=== PATIENT | female | born 1955 | race Caucasian/White ===

== ENCOUNTER 2016-09-10 21:32 | Observation (INO) | payer MEDICARE, OTHER ==
[~2016-09-10] VITALS: Ht 162.6 cm; Wt 86.5 kg
--- NOTE | ~2016-09-10 | HEMODYNAMI ---
PATIENT:HAZEL LIMA MEDICAL RECORD: [id number] : 51 [id number] ADMISSION DATE: 09/11/16 Generatedon:09/12/201614:05 Patient name: HAZEL LIMA Patient #: [id number] SSN: D OB: 1955 Date of study: 09/12/2016 Page: Of Hemodynamic Procedure Report Patient Data Patient Demographics Procedure consent was obtained First Name: HAZEL Gender: Female Last Name: JANIE : 1955 [facility] Initial: J Age: 61 year(s) Patient #: [id number] Race: Additional ID: [id number] Contact details [address]: [address] [place] [address] cutoff State: [place] City: [place] Zip code: [address] Past Medical History Allergies Allergen Reaction Date Comments Reported Other allergy 04/28/2015 Morphine, Shellfish Iodine 09/12/2016 Morphine 09/12/2016 Admission Admission Data Admission Date: 09/11/2016 Admission Time: 1:29 Room #: D.2119 Lab Results Lab Result Date: 09/12/2016 Lab Result Time: 0:00 Biochemistry Name Units Result Min Max BUN mg/dl 14 --(--*-)-- 7 18 Creatinine mg/dl 0.9 --(-*--)-- 0.6 1.3 CBC Name Units Result Min Max Hemoglobin g/dl 13.3 -*(----)-- 13.5 17.5 Procedure Procedure Types Cath Procedure Diagnostic Procedure LHC LHC w/Coronaries PCI Procedure Coronary Stent Initial Miscellaneous Procedures Moderate Sedation up to 30 minutes Procedure Description Procedure Date Procedure Date: 09/12/2016 Procedure Start Time: 13:36 Procedure End Time: 14:00 Procedure Staff Name Function Kaiser Jaimes MD Performing Physician Diana Leon RN Nurse Anjel Peters RT Monitor Chong Perales RN Lambskin Trimmer Donald Mcclain RT Scrub Procedure Data Cath Procedure Fluoroscopy Diagnostic fluoroscopy Total fluoroscopy Time: 5.5 time: 5.5 min min Diagnostic fluoroscopy Total fluoroscopy dose: dose: 1148 mGy 1148 mGy Contrast Material Contrast Material Type Amount (ml) Isovue 370 0 Isovue 300 149 Entry Location Entry Primary Successful Side Size Upsize Upsize Entry Closure Succes sful Closure Location (Fr) 1 (Fr) 2 (Fr) Remarks Device Remarks Femoral Right 5 Fr 6 Fr Exoseal artery Short Diagnostic catheters Device Type Used For End Catheter Placement Cordis 5Fr JL 4.0 Left Coronary Catheter (MP) Angiography Cordis 5Fr 3DRC Catheter Right Coronary (MP) Angiography Diagnostic Infinity 5Fr Right Coronary AL 1 catheter Angiography Cordis 5Fr Pigtail LV Angiography Catheter (MP) Procedure Complications No complications Procedure Medications Medication Administration Route Dosage Oxygen NC 2 l/min Heparin Flush Bag added to field 2 bags (1000units/500ml NS) Lidocaine 2% added to field 20 Versed I.V. 1 mg Fentanyl I.V. 50 mcg Versed I.V. 1 mg Fentanyl I.V. 50 mcg Versed I.V. 1 mg Fentanyl I.V. 50 mcg Heparin Bolus I.V. 8500 units Nitroglycerin IC/IA I.C. 100 mcg Versed I.V. 1 mg Fentanyl I.V. 50 mcg Plavix P.O. 600 mg Hemodynamics Rest HGB: 13.3 (g/dl) Heart Rate: 88 (bpm) Pressure Samples Time Site Value (mmHg) Purpose Heart Use Rate(bpm) 13:44 LV 135/0,19 EDP 84 13:44 AO 116/64(86) Pullback 85 13:44 LV 133/0,21 Pullback 85 Gradients Valve Time Site 1 Site 2 Mean SEP/DFP Peak To Heart Use (mmHg) (sec/min) Peak Rate (mmHg) (bpm) Aortic 13:44 LV AO 11 26 17 85 133/0,21 116/64(86) Calculations Valve P-P Mean Valve Index Valve Source Name Gradient Area Flow (cm2) Aortic 17 11 17 11 Snapshots Pre Cath Intra NCS Post Cath Vital Signs Time Heart Resp SPO2 NIBP (mmHg) Rhythm Pain Sedation Rate (ipm) (%) Status Level (bpm) 13:17:23 87 16 97 167/82(116) NSR 0 (11) 10(A) , No pain 13:21:53 88 21 97 160/82(144) NSR 0 (11) 10(A) , No pain 13:26:13 90 15 98 140/80(114) NSR 0 (11) 10(A) , No pain 13:31:10 86 19 96 134/72(104) NSR 0 (11) 10(A) , No pain 13:35:27 83 23 96 134/69(97) NSR 0 (11) 10(A) , No pain 13:39:43 82 18 96 123/71(102) NSR 0 (11) 10(A) , No pain 13:44:03 86 16 96 128/60(99) NSR 0 (11) 10(A) , No pain 13:48:19 86 16 99 129/68(96) NSR 0 (11) 10(A) , No pain 13:52:31 89 16 98 128/71(100) NSR 0 (11) 10(A) , No pain 13:56:42 97 16 97 125/73(94) NSR 0 (11) 10(A) , No pain 13:59:47 91 16 97 135/71(99) NSR 0 (11) 10(A) , No pain Medications Time Medication Route Dose Verified Delivered Reason Notes Effectiveness by by 13:24:15 Oxygen NC 2 Kaiser Diana Per physician l/min Shane Leon RN 13:24:22 Heparin Flush added 2 Kaiser Kaiser used for Bag to bags Shane Jaimes MD procedure (1000units/500ml field NS) 13:24:31 Lidocaine 2% added 20ml Kaiser Kaiser used for to vial Shane Jaimes MD procedure field 13:30:05 Versed I.V. 1 mg Kaiser Diana for sedation Shane Leon RN 13:30:11 Fentanyl I.V. 50 Kaiser Diana for sedation mcg Shane Leon RN 13:32:29 Versed I.V. 1 mg Kaiser Diana for sedation Shane Leon RN 13:32:33 Fentanyl I.V. 50 Kaiser Diana for sedation mcg Shane Leon RN 13:34:38 Versed I.V. 1 mg Kaiser Diana for sedation Shane Leon RN 13:34:47 Fentanyl I.V. 50 Kaiser Diana for sedation mcg Shane Leon RN 13:37:07 Versed I.V. 1 mg Kaiser Diana for sedation Shane Leon RN 13:37:16 Fentanyl I.V. 50 Kaiser Diana for sedation mcg Shane Leon RN 13:49:50 Heparin Bolus I.V. 8500 Kaiser Diana for dose units Shane Leon RN anticoagulation verified with dr jaimes 13:55:38 Nitroglycerin I.C. 100 Kaiser Kaiser for IC/IA mcg Shane wilkins 13:58:21 Plavix P.O. 600 Kaiser Diana for mg Shane Leon RN antiplatelet therapy Procedure Log Time Note 12:50:46 Chong Perales RN sent for patient. Start room use. 12:56:51 Plan of Care:Hemodynamics will remain stable., Cardiac rhythm will remain stable., Comfort level will be maintained., Respiratory function will remain adequate., Patient/ family verbilizes understanding of procedure., Procedure tolerated without complication., Recovers from procedure without complications.. 12:56:52 Time tracking: Regular hours 13:09:15 Patient received from PCU to CCL 2 Alert and oriented. Tansferred to table in Supine position. 13:09:16 Warm blankets applied, and addy hugger turned on for patient comfort. 13:09:17 Correct patient and procedure confirmed by team. 13:09:18 Signed procedure consent form obtained from patient. 13:09:19 ECG and BP/O2 sat monitors applied to patient. 13:16:09 Vital chart was started 13:21:44 Baseline sample Acquired. 13:21:50 Rhythm: sinus tachycardia 13:21:52 Full Disclosure recording started 13:22:01 H&P Date Dictated: 09/11/2016 Within 30 days and on chart.. 13:22:02 Pre-procedure instructions explained to patient. 13:22:02 Pre-op teaching completed and patient verbalized understanding. 13:22:04 Family in patients room. 13:22:05 Patient NPO since Midnight. 13:22:11 Patient allergic to Iodine 13:22:16 Patient allergic to Morphine 13:22:18 Is the patient allergic to Iodine/contrast media? Yes. 13:22:20 Was the patient premedicated? Yes 13:24:15 Oxygen 2 l/min NC was administered by Diana Leon RN; Per physician; 13:24:22 Heparin Flush Bag (1000units/500ml NS) 2 bags added to field was administered by Kaiser Jaimes MD; used for procedure; 13:24:31 Lidocaine 2% 20ml vial added to field was administered by Kaiser Jaimes MD; used for procedure; 13:26:58 Is patient on blood thinner?No 13:27:01 ACC The patient was administered the following blood thiners within the last 24 hours: ACCAspirin 13:27:03 Patient diabetic? No. 13:27:04 ----Pre-sedation anethsthesia assessment.---- 13:27:06 Previous problem with sedation/anesthesia? No ? 13:27:07 Snore? Yes 13:27:09 Sleep apnea? Yes 13:27:10 Deviated septum? No 13:27:11 Opens mouth fully? Yes 13:27:12 Sticks out tongue? Yes 13:27:21 Airway obstruction? Yes chronic bronchitits 13:27:25 Dentures? No ? 13:27:27 Pre procedure: right dorsailis pedis pulse 1+ Palpable, but thready & weak; easily obliterated 13:27:31 Patient pain scale 0/10 ?. 13:27:38 IV patent on arrival in left forearm with 0.9% NaCl at 10ml/hr. 13:29:20 Lab Result : BUN 14 mg/dl 13:29:20 Lab Result : Hemoglobin 13.3 g/dl 13:29:20 Lab Result : Creatinine 0.9 mg/dl 13::23 Lab results completed and on chart. 13:29:25 Right groin area was prepped with chlora-prep and draped in sterile fashion 13:: Alarms reviewed by R. N. 13:: Sharps counted by scrub and verified by R.N. :: --------ALL STOP TIME OUT------ :29 Final Timeout: patient, procedure, and site verified with staff and physician. All members of the team are in agreement. 13:29:31 Right groin site verified by team. 13::35 Physical assessment completed. ASA score P 2 - A patient with mild systemic disease as per Kaiser Jaimes MD. 13:29:38 Sedation plan: IV Moderate Sedation Versed, Fentanyl 13:30:02 Use device set Femoral Dx 13:30:03 Acist Syringe opened to sterile field. 13:30:03 Bag Decanter opened to sterile field. 13:30:03 Medline Cath Pack opened to sterile field. 13:30:04 Terumo 5Fr Chaplin Sheath opened to sterile field. 13:30:04 St Eriberto 260cm J .035 wire opened to sterile field. 13:30:05 Versed 1 mg I.V. was administered by Diana Leon RN; for sedation; 13:30:05 Acist Hand Control opened to sterile field. 13:30:06 Acist Manifold opened to sterile field. 13:30:06 Diagnostic Infinity 5Fr Multipack catheter opened to sterile field. 13:30:06 Tegaderm 4 x 4 opened to sterile field. 13:30:11 Fentanyl 50 mcg I.V. was administered by Diana Leon RN; for sedation; 13:32:29 Versed 1 mg I.V. was administered by Diana Leon RN; for sedation; 13:32:33 Fentanyl 50 mcg I.V. was administered by Diana Leon RN; for sedation; 13:34:34 Procedure started. 13:34:38 Versed 1 mg I.V. was administered by Diana Leon RN; for sedation; 13:34:47 Fentanyl 50 mcg I.V. was administered by Diana Leon RN; for sedation; 13:36:45 Zero performed for pressure channel P1 13:36:52 Local anesthetic to right femoral artery with Lidocaine 2% by Kaiser Jaimes MD.INITIAL ACCESS ONLY 13:37:00 A 5 Fr sheath was inserted into the Right Femoral artery 13:37:07 Versed 1 mg I.V. was administered by Diana Leon RN; for sedation; 13:37:15 A Cordis 5Fr JL 4.0 Catheter (BARBIE) was advanced over the wire and used for Left Coronary Angiography. 13:37:16 Fentanyl 50 mcg I.V. was administered by Diana Leon RN; for sedation; 13:37:21 LCA angiography performed. 13:38:51 Catheter removed. 13:38:59 A Cordis 5Fr 3DRC Catheter (MP) was advanced over the wire and used for Right Coronary Angiography. 13:40:48 Catheter exchanged over wire. 13:40:58 A Diagnostic Infinity 5Fr AL 1 catheter was advanced over the wire and used for Right Coronary Angiography. 13:42:09 RCA angiography performed. 13:42:10 Catheter removed. 13:43:23 A Cordis 5Fr Pigtail Catheter (MP) was advanced over the wire and used for LV Angiography. 13:43:36 LV angiography performed. 13:43:41 LV gram done using LA 13:43:45 Injector settings: Ml/sec: 10, Volume: 20, 13:44:18 LV hemodynamics recorded. 13:44:40 EF : 60 % 13:44:50 Catheter removed. 13:46:24 High Pressure Extension Tubing (Shane) opened to sterile field. 13:46:24 ForadianW Richmond 2 J-tip 300cm 0.014 guide wir opened to sterile field. 13:46:25 Mobile Cohesion BasixCompak Inflation Kit opened to sterile field. 13:46:25 Terumo 6Fr Chaplin Sheath opened to sterile field. 13:46:25 Cordis 6FR XBLAD 3.5 guide catheter opened to sterile field. 13:46:40 ACC PCI Site: [facility] has 99% stenosis. 13:46:42 ACC Pre-intervention MAYO Flow is 3. 13:46:50 Sheath upsized to a 6 Fr Short. 13:47:09 6 Fr XBLAD 3.5 guide catheter was inserted over the wire 13:47:15 BMW 2 wire advanced. 13:49:50 Heparin Bolus 8500 units I.V. was administered by Diana Leon RN; for anticoagulation; dose verified with dr jaimes 13:53:29 Inflation Number: 1 A Medtronic Integrity 3.0 X 18 stent was prepped and advanced across the Mid CX. The stent was deployed at 13 MARITZA for 0:10 (min:sec). 13:55:38 Nitroglycerin IC/IA 100 mcg I.C. was administered by Kaiser Jaimes MD; for vasodilation; 13:56:40 Stent catheter was removed intact over wire. 13:56:41 Wire removed. 13:56:41 Guide catheter removed. 13:58:11 Sheath removed intact; hemostasis achieved with Exoseal to the Right Femoral artery. 13:58:13 Procedure ended.(Physican Out) 13:58:21 Plavix 600 mg P.O. was administered by Diana Leon RN; for antiplatelet therapy; 13:58:23 Fluoroscopy time 05.50 minutes. 13:58:28 Flurop Dose total: 1148 13:58:28 Fluoroscopy dose: 1148 mGy 13:58:30 Contrast amount:Isovue 370 0ml. 13:58:36 Contrast amount:Isovue 300 149ml. 13:58:38 Sharps counted by scrub and verified by R.N. 13:58:39 Insertion/operative site no bleeding no hematoma. 13:58:41 Post-op/insertion site Right Femoral artery dressed using a 4 x 4 and Tegaderm. 13:58:48 Post right femoral artery:stable 13:58:49 Post Procedure Pulses reassessed and unchanged 13:58:51 Post procedure: right dorsailis pedis pulse 1+ Palpable, but thready & weak; easily obliterated. 13:59:17 Post procedure rhythm: sinus rhythm 13:59:19 Post procedure instruction explained to patient.Patient verbalizes understanding. 13:59:38 Procedure type changed to Cath procedure, Diagnostic procedure, LHC, LHC w/Coronaries, PCI procedure, Coronary Stent Initial, Miscellaneous Procedures, Moderate Sedation up to 30 minutes 13:59:41 Procedure and supply charges have been captured, reviewed, submitted and are correct. 14:00:00 Cordis 6Fr Exoseal opened to sterile field. 14:00:20 Procedure Complication : No complications 14:00:22 Vital chart was stopped 14:00:22 See physician's report for complete and final results. 14:00:25 Report given to PCU. 14:00:28 Patient transfered to PCU with Bed. 14:00:29 Procedure ended. 14:00:29 Full Disclosure recording stopped 14:01:51 ACC-PCI Only Patient was given prescriptions, or instructed by Kaiser Jaimes MD to start/continue the following medications upon discharge: Plavix 14::53 End room use (Document Last) Intervention Summary Intervention Notes Time ActionType Lesion and Equipment Action# Pressure Duration Attributes Used 13:53:29 Place stent Mid CX Medtronic 1 13 00:10 Integrity 3.0 X 18 stent Device Usage Item Name Manufacture Quantity Catalog Hospital Part Current Minimal L ot# / Number Charge Number Stock Stock Serial# Code Acist Acist 1 98774 415662 574515 297534 20 Syringe Medical Systems Inc Bag Microtek 1 2002S 106856 25153 119375 5 Decanter Medical Inc. Medline Cardinal 1 [id number] 390797 85072 930735 5 Cath Pack Health Terumo 5Fr Terumo 1 [id number] 327147 334159 640788 [address] Eriberto 1 653721 726031 990402 761644 30 260cm J .035 wire Acist Hand Acist 1 33811 294070 338855 087184 5 Control Medical Systems Inc Acist Acist 1 45557 260540 878819 721563 5 Sports Weather Media [employer] Systems Inc Diagnostic Cardinal 1 [id number] 250000 68299 364413 30 ZALORA 5Fr Multipack catheter Tegaderm 4 3M 1 1626W 204364 178648 674038 5 x 4 Cordis 5Fr Cardinal 1 776507 5 JL 4.0 Health Catheter (MP) Cordis 5Fr Cardinal 1 052592 5 3DRC Health Catheter (MP) Diagnostic Cardinal 1 [id number] 653602 556222 787516 15 ZALORA 5Fr AL 1 catheter Cordis 5Fr Cardinal 1 168294 5 Pigtail Health Catheter (MP) High Merit 1 [id number] 818004 98318 972602 10 Pressure Medical Extension Tubing (Jaimes) Millan BMW Millan 1 [id number] 118751 036194 184009 5 Richmond 2 Vascular J-tip 300cm 0.014 guide wir Merit Merit 1 [id number] 371265 238846 935373 15 BasixCompak Medical Inflation Kit Terumo 6Fr Terumo 1 FEN196 326708 890320 769453 40 Chaplin Sheath Cordis 6FR Cardinal 1 [id number] 923235 460962 194955 10 XBLAD 3.5 Health guide catheter Medtronic Medtronic 1 [id number] 480758 399409 261093 1 0 [id number] Integrity 3.0 X 18 stent Cordis 6Fr Cardinal 1 EX600 133918 360179 572638 10 OneWire Signature Audit Jack Stage Time Signature Unsigned Intra-Procedure 09/12/2016 Anjel Peters 2:05:04 PM RT(R) Signatures Monitor : Anjel Peters RT Signature : Date : Time : [facility] [address] [place] [address]
--- NOTE | ~2016-09-10 | OP ---
PATIENT NAME: HAZEL LIMA MEDICAL RECORD: [id number] :51 LOCATION:D. D.2119 ADMISSION DATE:09/11/16 SURGEON: JOSE OREILLY M.D. DATE OF OPERATION: 09/12/2016 REFERRING PHYSICIAN: Tyler Wetzel MD. PROCEDURES PERFORMED: 1. Selective coronary angiography. 2. Left heart catheterization with ventriculogram. 3. PTCA and stent placed in the circumflex. INDICATION: A 61-year-old who presents with symptoms of the accelerating angina. EQUIPMENT USED: Diagnostic 5-Thai JL4, AL1, pigtail catheter. INTERVENTION: A 6-Thai XB LAD guide, BMW guidewire, 3.0 x 18 mm Integrity stent. TECHNIQUE: A 5-Thai sheath was inserted in retrograde fashion in the right common femoral artery. Next, selective coronary angiography was performed in standard 5-Thai JL4 and AL1 catheters. Left heart catheterization was performed using pigtail catheter. CORONARY ANATOMY: 1. Left main: Left main trunk is moderate in caliber. It gives rise to the LAD and circumflex. It has no obstruction. 2. LAD: This is a large caliber vessel extending to the apex. The proximal mid vessel has been stented. The stent demonstrates a diffuse restenosis, but nothing worse than 30% to 40%. 3. Ramus: This vessel appears to have a 60% stenosis at the level of the bifurcation. 4. Circumflex: This vessel is moderate in caliber. The first lateral branch has an ulcerated 99% stenosis with slow flow. 5. Right coronary: This vessel actually arises from the noncoronary cusp. It is a smooth-walled vessel and angiographically normal. 6. Left ventricle: Left ventricle is normal in size and function. No wall motion abnormalities are seen. Estimated ejection is 60%. DESCRIPTION OF INTERVENTION: A 6-Thai sheath was inserted in retrograde fashion in the right common femoral artery. Next, 100 units per kilogram of heparin was infused. A 6-Thai XB LAD guide was advanced and engaged in the left main coronary artery. Next, a BMW guide wire was placed in the lateral branch of circumflex. A 3.0 x 18 mm Integrity stent was placed across the stenosis and deployed at 14 atmospheres. Injection shows stent to be widely patent with 0% residual stenosis. There is marked improvement in distal flow. At this point, the wire and guide were removed. IMPRESSION: Successful percutaneous transluminal coronary angioplasty and stent of the circumflex with 0% residual stenosis. TRANSINT:[id number] Voice Confirmation ID: [id number] DOCUMENT ID: [id number] OPERATIVE REPORT [id number] HAZEL LIMA TIMOTHY E M.D. CC: [id number] DICTATION DATE: 09/12/16 1405 PLOW MECHANIC: 09/12/162221 DIS IN 09/12/16 [facility] [address] [id number]
[~2016-09-10 21:32] MED LIST: AZO PO; BAYER CHEWABLE81 MG PO; CELEXA20 MG PO; DIOVAN80 MG PO; POTASSIUM CHLO10 ME1 PO; SYNTHROID75 MCG PO; TRIAMTERENE-HCT1 TA1 PO
[2016-09-10 23:35] LABS: BASOPHILS 0.2 % (0-2); HEMATOCRIT 42.2 % (36.0-48.0); HEMOGLOBIN 13.3 g/dL (12-16); IMMATURE GRANULOCYTES 0.5 % (0-5); LYMPHOCYTES 16.9 % (15-50); MCH 28.1 pg (26.0-34.0); MCHC 31.5 g/dL (31.0-37.0); MEAN PLATELET VOLUME 10.4 fL (7.4-10.4); MONOCYTES 9.1 % (2-11); NEUTROPHILS 70.3 % (40-80); RBC 4.74 10x6/uL (4.00-5.40); RDW 14.5 % (11.5-14.5); WBC 12.8 10x3/uL (4.8-10.8)
[2016-09-10 23:41] LABS: PLATELET COUNT 297 10x3/uL (130-400)
[2016-09-10 23:56] LABS: ALBUMIN 3.4 g/dL (3.4-5.0); ALKALINE PHOSPHATASE 92 U/L (46-116); ALT (SGPT) 35 U/L (10-68); BILIRUBIN - TOTAL 0.28 mg/dL (0.2-1.3); CALC OSMOLALITY 283 mosm/kg (275-300); CALCIUM 9.7 mg/dL (8.5-10.1); CARBON DIOXIDE 30.7 mmol/L (21.0-32.0); CHLORIDE - SERUM 103 mmol/L (98-107); CREATININE - SERUM 0.9 mg/dL (0.6-1.3); PROTEIN - SERUM 7.7 g/dL (6.4-8.2); SODIUM 142 mmol/L (136-145); UREA NITROGEN 16 mg/dL (7-18); eGFR NON AFRICAN AMERICAN 67 mL/min (90-120)
[2016-09-10 23:57] LABS: GLUCOSE 102 mg/dL (74-106)
[2016-09-11 00:06] LABS: CKMB 0.4 U/L (0.0-3.6); CREATINE KINASE 28 UL (21-215)
[2016-09-11 00:07] LABS: TROPONIN-I < 0.017 ng/mL (0.000-0.060)
[2016-09-11 00:38] LABS: APPEARANCE CLEAR (CLEAR); BILIRUBIN NEGATIVE (NEGATIVE); COLOR YELLOW (YELLOW); GLUCOSE NEGATIVE (NEGATIVE); KETONE NEGATIVE (NEGATIVE); LEUKOCYTE ESTERASE NEGATIVE (NEGATIVE); NITRITE NEGATIVE (NEGATIVE); PROTEIN NEGATIVE (NEGATIVE); UROBILINOGEN NORMAL (NORMAL)
[2016-09-11 02:50] VITALS: BP 142/80; Ht 162.6 cm; Wt 86.5 kg
[2016-09-11 04:00] VITALS: BP 142/80
[2016-09-11 07:02] LABS: CKMB 0.4 U/L (0.0-3.6); CREATINE KINASE 27 UL (21-215); TROPONIN-I < 0.017 ng/mL (0.000-0.060)
[2016-09-11 08:00] VITALS: BP 146/82
[2016-09-11 09:57] LABS: BASOPHILS 0.4 % (0-2); EOSINOPHILS 3.9 % (0-7); HEMATOCRIT 42.7 % (36.0-48.0); HEMOGLOBIN 13.5 g/dL (12-16); IMMATURE GRANULOCYTES 0.8 % (0-5); LYMPHOCYTES 17.4 % (15-50); MCH 28.3 pg (26.0-34.0); MCHC 31.6 g/dL (31.0-37.0); MCV 89.5 fL (80.0-100.0); MEAN PLATELET VOLUME 10.7 fL (7.4-10.4); MONOCYTES 11.3 % (2-11); NEUTROPHILS 66.2 % (40-80); PLATELET COUNT 302 10x3/uL (130-400); RBC 4.77 10x6/uL (4.00-5.40); RDW 14.5 % (11.5-14.5); WBC 10.6 10x3/uL (4.8-10.8)
[2016-09-11 10:00] LABS: ANION GAP 10.6 mmol/L (8-16); CALCIUM 9.4 mg/dL (8.5-10.1); CARBON DIOXIDE 31.8 mmol/L (21.0-32.0); CREATININE - SERUM 0.9 mg/dL (0.6-1.3); POTASSIUM - SERUM 3.4 mmol/L (3.5-5.1)
[2016-09-11 11:57] LABS: CKMB 0.2 U/L (0.0-3.6); CREATINE KINASE 24 UL (21-215)
[2016-09-11 11:58] LABS: TROPONIN-I < 0.017 ng/mL (0.000-0.060)
[2016-09-11 12:00] VITALS: BP 115/57
[2016-09-11 17:54] LABS: CKMB 0.3 U/L (0.0-3.6); CREATINE KINASE 29 UL (21-215)
[2016-09-11 17:55] LABS: TROPONIN-I < 0.017 ng/mL (0.000-0.060)
[2016-09-11 19:46] VITALS: BP 153/76
[2016-09-11 23:27] VITALS: BP 170/92
[2016-09-12 03:43] VITALS: BP 133/64
[2016-09-12 07:37] VITALS: BP 128/72
[2016-09-12 11:22] VITALS: BP 126/76
[2016-09-12] MEDS ORDERED: CELEXA20 MG PO (14:55)
[2016-09-12] MEDS ORDERED: CYCLOBENZAPRINE10 MG PO (14:56)
[2016-09-12] MEDS ORDERED: HYDROCODON-ACE1 EAC7 PO (14:56)
[2016-09-12 15:34] VITALS: BP 115/62
[2016-09-12] MEDS ORDERED: PLAVIX75 MG PO (16:25)
[2016-09-12] MEDS ORDERED: STERAPRED DS 1010 MG PO (17:39)
[2016-09-12] MEDS ORDERED: CRESTOR5 MG PO (17:39)
== END 2016-09-12 20:06 | disposition home or self-care (01) ==
LOC: D.ER 21:32 → D.M2 09-11 01:29 → OBSVTIME 09-11 01:29 → D.M2 09-11 01:29
PROVIDERS: Family Medicine; Internal Medicine Cardiovascular Disease; Nurse Practitioner Family; ADMIT Emergency Medicine
DX: I25.119 Atherosclerotic heart disease of native coronary artery with unspecified angina pectoris (principal); J44.9 Chronic obstructive pulmonary disease, unspecified; I10 Essential (primary) hypertension; G47.30 Sleep apnea, unspecified

== ENCOUNTER 2016-11-11 20:54 | Emergency (ER) | payer MEDICARE, OTHER ==
[2016-09-11 02:50] VITALS: BMI 32.7
[~2016-11-11 20:54] MED LIST changes: +CRESTOR5 MG PO; +CYCLOBENZAPRINE10 MG PO; +HYDROCODON-ACE1 EAC7 PO; +PLAVIX75 MG PO; +STERAPRED DS 1010 MG PO
[2016-11-11 22:06] LABS: BASOPHILS 0.1 % (0-2); EOSINOPHILS 3.3 % (0-7); HEMOGLOBIN 12.8 g/dL (12-16); IMMATURE GRANULOCYTES 0.4 % (0-5); LYMPHOCYTES 9.2 % (15-50); MCH 28.6 pg (26.0-34.0); MCV 89.3 fL (80.0-100.0); MEAN PLATELET VOLUME 10.2 fL (7.4-10.4); PLATELET COUNT 341 10x3/uL (130-400); RBC 4.48 10x6/uL (4.00-5.40); RDW 14.6 % (11.5-14.5); WBC 14.2 10x3/uL (4.8-10.8)
[2016-11-11 22:29] LABS: ALBUMIN 3.4 g/dL (3.4-5.0); ALKALINE PHOSPHATASE 100 U/L (46-116); ALT (SGPT) 29 U/L (10-68); CALC OSMOLALITY 284 mosm/kg (275-300); CALCIUM 10.1 mg/dL (8.5-10.1); CARBON DIOXIDE 32.7 mmol/L (21.0-32.0); CHLORIDE - SERUM 100 mmol/L (98-107); POTASSIUM - SERUM 3.2 mmol/L (3.5-5.1); PROTEIN - SERUM 7.6 g/dL (6.4-8.2); SODIUM 141 mmol/L (136-145); UREA NITROGEN 14 mg/dL (7-18); eGFR NON AFRICAN AMERICAN 59 mL/min (90-120)
[2016-11-11 22:31] LABS: GLUCOSE 149 mg/dL (74-106)
[2016-11-11 22:41] LABS: CHOL - HDL RATIO 4.2 ratio (2.3-4.1); CHOLESTEROL, TOTAL 157 mg/dL (0-200); CKMB 0.2 U/L (0.0-3.6); CREATINE KINASE 24 UL (21-215); HDL CHOLESTEROL 37 mg/dL (32-96); LDL CHOLESTEROL 75 mg/dL (0-100); MAGNESIUM - SERUM 2.4 mg/dL (1.8-2.4); TRIGLYCERIDE 228 mg/dL (30-200); TROPONIN-I < 0.017 ng/mL (0.000-0.060)
== END 2016-11-11 23:45 | disposition home or self-care (01) ==
LOC: D.ER 20:54
PROVIDERS: Emergency Medicine
DX: R07.9 Chest pain, unspecified (principal); E87.6 Hypokalemia; I10 Essential (primary) hypertension; E03.9 Hypothyroidism, unspecified

== ENCOUNTER 2016-11-13 07:26 | Outpatient (CLI) | payer MEDICARE, OTHER ==
[~2016-11-13] VITALS: Ht 162.6 cm; Wt 86.1 kg
--- NOTE | ~2016-11-13 | HEMODYNAMI ---
PATIENT:HAZEL LIMA MEDICAL RECORD: [id number] : 51 [facility]# [id number] ADMISSION DATE: 11/13/16 Generatedon:11/14/201614:02 Patient name: HAZEL LIMA Patient #: [id number] SSN: D OB: 1955 Date of study: 11/14/2016 Page: Of Hemodynamic Procedure Report Patient Data Patient Demographics Procedure consent was obtained First Name: HAZEL Gender: Female Last Name: JANIE : 1955 [facility] Initial: Delmi Age: 61 year(s) Patient #: [id number] Race: Additional ID: [id number] Contact details Address: [address] [place] [address] [facility] State: [place] City: [place] Zip code: [address] Past Medical History Allergies Allergen Reaction Date Comments Reported Other allergy 04/28/2015 Morphine, Shellfish Iodine 09/12/2016 Morphine 09/12/2016 Other allergy 11/14/2016 morphine,shellfish, seafood. Admission Admission Data Admission Date: 11/13/2016 Admission Time: 7:26 Room #: D.2115 Lab Results Lab Result Date: 11/13/2016 Lab Result Time: 8:15 Biochemistry Name Units Result Min Max BUN mg/dl 13 --(--*-)-- 7 18 Creatinine mg/dl 1 --(--*-)-- 0.6 1.3 CBC Name Units Result Min Max Hematocrit % 42.3 --(*---)-- 42 54 Hemoglobin g/dl 13.8 --(*---)-- 13.5 17.5 Procedure Procedure Types Cath Procedure Diagnostic Procedure [facility] w/Coronaries PCI Procedure Coronary Stent Initial Miscellaneous Procedures Moderate Sedation up to 45 minutes Procedure Description Procedure Date Procedure Date: 11/14/2016 Procedure Start Time: 13:20 Procedure End Time: 13:59 Procedure Staff Name Function Kaiser Jaimes MD Performing Physician Shey Shankar RT Scrub Danii Sol RN Nurse Leonidas No RT Monitor Procedure Data Cath Procedure Fluoroscopy Diagnostic fluoroscopy Total fluoroscopy Time: 7.3 time: 7.3 min min Diagnostic fluoroscopy Total fluoroscopy dose: dose: 1234 mGy 1234 mGy Contrast Material Contrast Material Type Amount (ml) Isovue 300 152 Entry Location Entry Primary Successful Side Size Upsize Upsize Entry Closure Succes sful Closure Location (Fr) 1 (Fr) 2 (Fr) Remarks Device Remarks Femoral Right 5 Fr 6 Fr Exoseal artery Short Estimated blood loss: 10 ml Diagnostic catheters Device Type Used For End Catheter Placement Cordis 5Fr JL 4.0 Procedure Catheter (MP) Cordis 5Fr 3DRC Catheter Procedure (MP) Diagnostic Infinity 5Fr Procedure AR 1 MOD catheter Diagnostic Infinity 5Fr Procedure AL 1 catheter Cordis 5Fr Pigtail Procedure Catheter (MP) Procedure Complications No complications Procedure Medications Medication Administration Route Dosage Oxygen NC 3 l/min Lidocaine 2% added to field 20 Heparin Flush Bag added to field 2 bags (1000units/500ml NS) 0.9% NaCl I.V. 100 ml/hr Versed I.V. 1 mg Fentanyl I.V. 50 mcg Versed I.V. 1 mg Fentanyl I.V. 50 mcg Heparin Bolus I.V. 9000 units Versed I.V. 1 mg Versed I.V. 1 mg Hemodynamics Rest HGB: 13.8 (g/dl) Heart Rate: 84 (bpm) Pressure Samples Time Site Value (mmHg) Purpose Heart Use Rate(bpm) 13:35 LV 73/4,72 Snapshot 80 13:36 AO 128/63(89) Pullback 75 13:36 LV 153/-9,28 Pullback 75 Gradients Valve Time Site 1 Site 2 Mean SEP/DFP Peak To Heart Use (mmHg) (sec/min) Peak Rate (mmHg) (bpm) Aortic 13:36 LV AO 14 21 25 75 153/-9,28 128/63(89) Calculations Valve P-P Mean Valve Index Valve Source Name Gradient Area Flow (cm2) Aortic 25 14 25 14 Snapshots Pre Cath Intra NCS Post Cath Vital Signs Time Heart Resp SPO2 NIBP (mmHg) Rhythm Pain Sedation Rate (ipm) (%) Status Level (bpm) 13:01:13 85 22 97 150/72(112) NSR 0 (11) 10(A) , No pain 13:05:35 84 21 97 134/73(114) NSR 0 (11) 10(A) , No pain 13:09:53 83 14 95 127/67(92) NSR 0 (11) 10(A) , No pain 13:14:09 86 12 94 127/73(96) NSR 0 (11) 9(A) , No pain 13:18:19 85 16 92 114/68(86) NSR 0 (11) 9(A) , No pain 13:22:33 83 21 95 117/69(87) NSR 0 (11) 9(A) , No pain 13:26:45 85 13 93 117/72(98) NSR 0 (11) 9(A) , No pain 13:31:01 80 15 94 117/67(86) NSR 0 (11) 9(A) , No pain 13:35:17 119 14 94 109/64(90) NSR 0 (11) 9(A) , No pain 13:39:27 84 16 95 115/68(90) NSR 0 (11) 9(A) , No pain 13:43:39 86 13 94 107/62(80) NSR 0 (11) 9(A) , No pain 13:47:51 83 13 94 113/64(87) NSR 0 (11) 9(A) , No pain 13:52:07 86 26 95 120/64(93) NSR 0 (11) 9(A) , No pain 13:56:19 81 15 95 110/70(89) NSR 0 (11) 10(A) , No pain Medications Time Medication Route Dose Verified Delivered Reason Notes Ef fectiveness by by 13:04:27 Oxygen NC 3 Danii Danii used for l/min Ebenezer Ebenezer vocational instructor RN 13:04:35 Lidocaine 2% added 20ml Danii Danii used for to vial Ebenezer Ebenezer procedure field RN RN 13:04:46 Heparin Flush added 2 Danii Danii used for Bag to bags Ebenezer Ebenezer procedure (1000units/500ml field RN RN NS) 13:05:03 0.9% NaCl I.V. 100 Danii Danii used for ml/hr Ebenezer Ebenezer vocational instructor RN 13:11:11 Versed I.V. 1 mg Danii Danii for Ebenezer Ebenezer sedation RN RN 13:11:17 Fentanyl I.V. 50 Danii Danii for mcg Ebenezer Ebenezer sedation RN RN 13:15:09 Versed I.V. 1 mg Danii Danii for Ebenezer Ebenezer sedation RN RN 13:15:13 Fentanyl I.V. 50 Danii Daini for mcg Ebenezer Ebenezer sedation RN RN 13:20:49 Versed I.V. 1 mg Danii Danii for Ebenezer Ebenezer sedation RN RN 13:25:15 Versed I.V. 1 mg Danii Danii for Ebenezer Ebenezer sedation RN RN 13:40:53 Heparin Bolus I.V. 9000 Danii Danii Per verified units Ebenezer Ebenezer physician with RN RN theodore Procedure Log Time Note 12:30:20 Shey Counts RT(R) sent for patient. Start room use. 12:46:05 Informed consent obtained and on chart 12:46:46 Time tracking: Regular hours 12:46:50 Plan of Care:Hemodynamics will remain stable., Cardiac rhythm will remain stable., Comfort level will be maintained., Respiratory function will remain adequate., Patient/ family verbilizes understanding of procedure., Procedure tolerated without complication., Recovers from procedure without complications.. 12:47:16 H&P Date Dictated: 11/13/2016 Within 30 days and on chart.. 12:52:37 Lab Result : BUN 13 mg/dl 12:52:37 Lab Result : Creatinine 1 mg/dl 12:52:37 Lab Result : Hematocrit 42.3 % 12:52:37 Lab Result : Hemoglobin 13.8 g/dl 12:53:56 Patient received from Med II to CCL 2 Alert and oriented. Tansferred to table in Supine position. 12:53:57 Warm blankets applied, and addy hugger turned on for patient comfort. 12:53:58 Correct patient and procedure confirmed by team. 12:53:58 ECG and BP/O2 sat monitors applied to patient. 12:54:00 Pre-procedure instructions explained to patient. 12:54:00 Pre-op teaching completed and patient verbalized understanding. 12:54:02 Family in patients room. 12:54:04 Patient NPO since Midnight. 12:59:52 Vital chart was started 13:04:27 Oxygen 3 l/min NC was administered by Danii Sol RN; used for procedure; 13:04:35 Lidocaine 2% 20ml vial added to field was administered by Danii Sol RN; used for procedure; 13:04:46 Heparin Flush Bag (1000units/500ml NS) 2 bags added to field was administered by Danii Sol RN; used for procedure; 13:05:03 0.9% NaCl 100 ml/hr I.V. was administered by Danii Sol RN; used for procedure; 13:05:45 Baseline sample Acquired. 13:05:55 Rhythm: sinus rhythm 13:06:58 Patient allergic to Other allergymorphine,shellfish, seafood. 13:07:01 Is the patient allergic to Iodine/contrast media? Yes. 13:07:02 Is patient on blood thinner?Yes 13:07:05 ACC The patient was administered the following blood thiners within the last 24 hours: ACCPlavix 13:07:07 Patient diabetic? No. 13:07:14 Previous problem with sedation/anesthesia? No ? 13:07:14 Snore? Yes 13:07:15 Sleep apnea? Yes 13:07:16 Deviated septum? No 13:07:17 Opens mouth fully? Yes 13:07:17 Sticks out tongue? Yes 13:07:18 Airway obstruction? Yes ? 13:07:20 Dentures? No ? 13:07:23 Pre procedure: right dorsailis pedis pulse 1+ Palpable, but thready & weak; easily obliterated 13:07:25 Patient pain scale 0/10 ?. 13:10:12 IV patent on arrival in left forearm with 0.9% NaCl at [facility]. 13:10:19 Lab results completed and on chart. 13:10:21 Right groin area was prepped with chlora-prep and draped in sterile fashion 13:10:23 Alarms reviewed by R. N. 13:10:23 Sharps counted by scrub and verified by R.N. 13:10:26 Use device set Femoral Dx 13:10:28 Tegaderm 4 x 4 opened to sterile field. 13:10:29 Acist Manifold opened to sterile field. 13:10:29 Acist Hand Control opened to sterile field. 13:10:30 Acist Syringe opened to sterile field. 13:10:31 Bag Decanter opened to sterile field. 13:10:31 Medline Cath Pack opened to sterile field. 13:10:32 Terumo 5Fr [place] Sheath opened to sterile field. 13:10:32 St Eriberto 260cm J .035 wire opened to sterile field. 13:10:36 Diagnostic Infinity 5Fr Multipack catheter opened to sterile field. 13:10:45 Physician arrived 13::46 --------ALL STOP TIME OUT------ 13::46 Final Timeout: patient, procedure, and site verified with staff and physician. All members of the team are in agreement. 13:10:47 Right groin site verified by team. 13:10:50 Physical assessment completed. ASA score P 2 - A patient with mild systemic disease as per Kaiser Jaimes MD. 13:10:52 Sedation plan: IV Moderate Sedation Versed, Fentanyl 13:11:11 Versed 1 mg I.V. was administered by Danii Sol RN; for sedation; 13:11:17 Fentanyl 50 mcg I.V. was administered by Danii Sol RN; for sedation; 13:15:09 Versed 1 mg I.V. was administered by Danii Sol RN; for sedation; 13:15:13 Fentanyl 50 mcg I.V. was administered by Danii Sol RN; for sedation; 13:17:07 Zero performed for pressure channel P1 13:20:49 Versed 1 mg I.V. was administered by Danii Sol RN; for sedation; 13:20:49 Procedure started. 13:20:49 Full Disclosure recording started 13:20:52 Local anesthetic to right femoral artery with Lidocaine 2% by Kaiser Jaimes MD.INITIAL ACCESS ONLY 13:22:34 A 5 Fr sheath was inserted into the Right Femoral artery 13:23:49 A Cordis 5Fr JL 4.0 Catheter (BARBIE) was advanced over the wire and used for Procedure. 13:24:36 LCA angiography performed. 13:25:15 Versed 1 mg I.V. was administered by Danii Sol RN; for sedation; 13:27:31 Catheter exchanged over wire. 13:27:43 A Cordis 5Fr 3DRC Catheter (MP) was advanced over the wire and used for Procedure. 13:29:31 Catheter exchanged over wire. 13:29:41 A Diagnostic Infinity 5Fr AR 1 MOD catheter was advanced over the wire and used for Procedure. 13:32:17 Catheter removed. unable to cannulate vessel. 13:32:27 A Diagnostic Infinity 5Fr AL 1 catheter was advanced over the wire and used for Procedure. 13:33:43 RCA angiography performed. 13:34:11 Catheter exchanged over wire. 13:34:15 A Cordis 5Fr Pigtail Catheter (MP) was advanced over the wire and used for Procedure. 13:35:29 Merit BasixCompak Inflation Kit opened to sterile field. 13:35:56 LV hemodynamics recorded. 13:35:59 LV gram done using LA 13:36:02 Injector settings: Ml/sec: 10, Volume: 20, 13:36:07 EF : 55 % 13:36:18 Catheter removed. 13:36:22 High Pressure Extension Tubing (Theodore) opened to sterile field. 13:36:23 Terumo 6Fr [place] Sheath opened to sterile field. 13:36:24 [place] Sci Luge Straight 300cm 0.014 guide wire opened to sterile field. 13:36:47 Sheath upsized to a 6 Fr Short. 13:39:19 Cordis 6FR XBLAD 3.5 guide catheter opened to sterile field. 13:39:28 6 Fr xblad 3.5 guide catheter was inserted over the wire 13:40:53 Heparin Bolus 9000 units I.V. was administered by Danii Sol RN; Per physician; verified with dr. jaimes 13:42:23 luge wire advanced. 13:43:39 Wire advanced across lesion. 13:45:21 Inflation number: 1 A Mozec Rx 2.0 x 15 balloon was prepped and advanced across the Ramus, then inflated to 8 MARITZA for 0:10 (min:sec). 13:45:49 Inflation number: 2 The Mozec Rx 2.0 x 15 balloon was reinflated across the Ramus, to 8 MARITZA for 0:10 (min:sec). 13:47:36 Balloon removed over the wire. 13:51:18 Inflation Number: 3 A [place] OTW 2.25 x 15 stent was prepped and advanced across the Ramus. The stent was deployed at 10 MARITZA for 0:10 (min:sec). 13:51:55 Stent catheter was removed intact over wire. 13:51:55 Wire removed. 13:51:55 Guide catheter removed. 13:52:23 Cordis 6Fr Exoseal opened to sterile field. 13:52:34 Sheath removed intact; hemostasis achieved with Exoseal to the Right Femoral artery. 13:52:35 Procedure ended.(Physican Out) 13:53:59 Fluoroscopy time 07.30 minutes. 13:54:06 Flurop Dose total: 1234 13:54:06 Fluoroscopy dose: 1234 mGy 13:54:09 Contrast amount:Isovue 300 152ml. 13:54:12 Sharps counted by scrub and verified by R.N. 13:54:15 Post-op/insertion site Right Femoral artery dressed using a 4 x 4 and Tegaderm. 13:54:18 Post right femoral artery:stable, soft, clean and dry 13:54:20 Post Procedure Pulses reassessed and unchanged 13:54:25 Post-procedure physical assessment completed. ASA score P 2 - A patient with mild systemic disease as per Kaiser Jaimes MD. 13:54:27 Post procedure rhythm: unchanged. 13:55:02 Estimated blood loss: 10 ml 13:56:19 Post procedure instruction explained to patient.Patient verbalizes understanding. 13:56:19 Patient needs reinforcement of post procedure teaching. 13:57:01 Procedure type changed to Cath procedure, Diagnostic procedure, LHC, LHC w/Coronaries, PCI procedure, Coronary Stent Initial, Miscellaneous Procedures, Moderate Sedation up to 45 minutes 13:59:33 Procedure and supply charges have been captured, reviewed, submitted and are correct. 13:59:35 Procedure Complication : No complications 13:59:37 Vital chart was stopped 13:59:38 See physician's report for complete and final results. 13:59:39 Report given to Pre/Post Procedure Room. 13:59:41 Patient transfered to Pre/Post Procedure Room with Stretcher. 13:59:52 Procedure ended. 13:59:52 Full Disclosure recording stopped 14:00:36 End room use (Document Last) Intervention Summary Intervention Notes Time ActionType Lesion and Equipment Action# Pressure Duration Attributes Used 13:45:21 Inflate Ramus Mozec Rx 1 8 00:10 balloon 2.0 x 15 balloon 13:45:49 Reinflate Ramus Mozec Rx 2 8 00:10 balloon 2.0 x 15 balloon 13:51:18 Place stent Ramus [place] OTW 3 10 00:10 2.25 x 15 stent Device Usage Item Name Manufacture Quantity Catalog Hospital Part Current Minima l Lot# / Number Charge Number Stock Stock Serial# Code Tegaderm 4 3M 1 [id number] 474772 5 x 4 Acist Acist 1 94667 602977 463318 188407 5 Manifold Medical Systems AdverseEvents Acist Hand Acist 1 44382 658754 001123 607921 5 Invite Media Medical Systems Inc Acist Acist 1 95671 133840 735732 611534 20 Syringe Medical Systems AdverseEvents Bag Microtek 1 2002S 753425 85320 517051 5 [employer] Inc. Medline Cardinal 1 [id number] 601845 99303 445373 5 Cath Pack Health Terumo 5Fr Terumo 1 [id number] 970052 104005 710928 [address] Eriberto 1 786398 580726 923311 366207 30 260cm J .035 wire Diagnostic Cardinal 1 [id number] 825258 84972 214984 30 [employer] Health 5Fr Multipack catheter Cordis 5Fr Cardinal 1 403122 5 JL 4.0 Health Catheter (MP) Cordis 5Fr Cardinal 1 814558 5 3DRC Health Catheter (MP) Diagnostic Cardinal 1 [id number] 467270 349911 250338 15 [place] 5Fr AR 1 MOD catheter Diagnostic Cardinal 1 [id number] 970095 014257 193893 15 [place] 5Fr AL 1 catheter Cordis 5Fr Cardinal 1 354490 5 Pigtail Health Catheter (MP) Merit Merit 1 [id number] 652321 324586 445778 15 VTX Technology Medical Inflation Kit High Merit 1 [id number] 996976 83807 593378 10 Pressure Medical Extension Tubing (Jaimes) Terumo 6Fr Terumo 1 [id number] 281555 831379 436897 40 [place] Sheath Beau[place] Sci Beaufort 1 [id number] 870902 363376 266629 5 Dakim [employer] Straight 300cm 0.014 guide wire Cordis 6FR Cardinal 1 [id number] 380177 568593 552083 10 XBLAD 3.5 Health guide catheter Mozec Rx Cardinal 1 [id number] 451144 98224 741839 5 [id number] 2.0 x 15 Health balloon Anand OTW Medtronic 1 [id number] 508994 59608 600309 5 [id number] 2.25 x 15 stent Cordis 6Fr Cardinal 1 EX600 588708 233867 255936 10 [facility] Health Signature Audit Freedom Stage Time Signature Unsigned Intra-Procedure 11/14/2016 Leonidas No 2:02:46 PM RT(R) Signatures Monitor : Leonidas No RT Signature : Date : Time : [facility] [address] [facility] [place] [address]
[2016-11-13 08:29] LABS: BASOPHILS 0.2 % (0-2); EOSINOPHILS 2.8 % (0-7); HEMATOCRIT 42.3 % (36.0-48.0); HEMOGLOBIN 13.8 g/dL (12-16); IMMATURE GRANULOCYTES 0.6 % (0-5); LYMPHOCYTES 12.7 % (15-50); MCH 28.8 pg (26.0-34.0); MCHC 32.6 g/dL (31.0-37.0); MCV 88.3 fL (80.0-100.0); MEAN PLATELET VOLUME 10.2 fL (7.4-10.4); MONOCYTES 8.1 % (2-11); NEUTROPHILS 75.6 % (40-80); PLATELET COUNT 368 10x3/uL (130-400); RBC 4.79 10x6/uL (4.00-5.40); RDW 14.7 % (11.5-14.5); WBC 13.1 10x3/uL (4.8-10.8)
[2016-11-13 08:51] LABS: ALBUMIN 3.5 g/dL (3.4-5.0); ALKALINE PHOSPHATASE 113 U/L (46-116); ALT (SGPT) 34 U/L (10-68); BILIRUBIN - TOTAL 0.42 mg/dL (0.2-1.3); CALC OSMOLALITY 280 mosm/kg (275-300); CALCIUM 10.3 mg/dL (8.5-10.1); CARBON DIOXIDE 29.3 mmol/L (21.0-32.0); CHLORIDE - SERUM 100 mmol/L (98-107); GLUCOSE 152 mg/dL (74-106); POTASSIUM - SERUM 3.4 mmol/L (3.5-5.1); PROTEIN - SERUM 8.2 g/dL (6.4-8.2); SODIUM 139 mmol/L (136-145); UREA NITROGEN 13 mg/dL (7-18); eGFR NON AFRICAN AMERICAN 59 mL/min (90-120)
[2016-11-13 09:05] LABS: CREATINE KINASE 23 UL (21-215); TROPONIN-I < 0.017 ng/mL (0.000-0.060)
[2016-11-13 12:34] LABS: CREATINE KINASE 22 UL (21-215); TROPONIN-I < 0.017 ng/mL (0.000-0.060)
[2016-11-13] MEDS ORDERED: ZOVIRAX800 MG PO (13:23)
[2016-11-13] MEDS ORDERED: CORTISPORIN OTI10 M1 EACH EAR (13:24)
[2016-11-13] MEDS ORDERED: NITROQUICK0.4 MG SL (13:25)
[2016-11-13] MEDS ORDERED: AUGMENTIN 875-11 TAB PO (13:25)
[2016-11-13 15:48] VITALS: BP 142/78; Ht 162.6 cm; Wt 86.1 kg
[2016-11-13 16:00] VITALS: BP 130/73
[2016-11-13 18:35] LABS: CKMB 0.1 U/L (0.0-3.6); CREATINE KINASE 24 UL (21-215)
[2016-11-13 18:39] LABS: TROPONIN-I < 0.017 ng/mL (0.000-0.060)
--- NOTE | 2016-11-13 20:33 | NUR ---
RESUMED CARE OF PT, LYING IN BED RESPIRATIONS EVEN AND UNLABORED ON 2LPM VIA NC. 95 SR ON TELEMETRY. LEFT WRIST SALINE LOCKED. CALL LIGHT IN REACH. WILL CONTINUE TO MONITOR. SEENURSE ASSESSMENT.
[2016-11-13 22:41] VITALS: BP 132/65
[2016-11-14 02:51] VITALS: BP 127/68
--- NOTE | 2016-11-14 03:04 | NUR ---
CALL LIGHT IN REACH, WILL CONTINUE WITH PLAN OF CARE. 68 SR ON TELEMETRY
[2016-11-14 05:27] VITALS: BP 132/77
[2016-11-14 08:00] VITALS: BP 115/55
--- NOTE | 2016-11-14 09:38 | NUR ---
TELEMETRY SR. NPO FOR [facility]. AT . CALL LIGHT IN REACH. WILL CONT. PLAN OF CARE.
[2016-11-14 12:17] VITALS: BP 135/64
--- NOTE | 2016-11-14 12:50 | NUR ---
IV RESTARTED TO LFA WITH 22 GAUGE CATH X 1 STICK AND FLUSHED WITH NS. PRE-OPS GIVEN. TO CARRY OUT CLERK AND SHELF STOCKER BY BED.
--- NOTE | 2016-11-14 14:29 | NUR ---
BACK FROM ZONING TECHNICIAN. VS WNL. RIGHT GROIN STABLE WITHOUT BLEEDING OR HEMATOMA NOTED. WILL MONITOR.
[2016-11-14 14:46] VITALS: BP 110/55
--- NOTE | 2016-11-14 15:00 | NUR ---
C/O C/P. DR OREILLY NOTIFIED. RENO GIVEN. WILL MONITOR.
--- NOTE | 2016-11-14 18:02 | NUR ---
BED REST UP. GROIN STABLE.
--- NOTE | 2016-11-14 18:34 | NUR ---
IV AND TELEMETRY DCD. DC PLANS GIVEN. UNDERSTANDING VOICED.
--- NOTE | 2016-11-14 18:39 | NUR ---
ESCORTED TO CAR BY W/C.
== END 2016-11-14 18:40 | disposition home or self-care (01) ==
LOC: D.M2 07:26 → D.ER 07:26 → D.CATH 07:26 → D.M2 09:14 → EDSTATUS 10:03 → D.CATH 11-14 18:40
PROVIDERS: Emergency Medicine
DX: I25.110 Atherosclerotic heart disease of native coronary artery with unstable angina pectoris (principal); T82.855A Stenosis of coronary artery stent, initial encounter; I10 Essential (primary) hypertension; E78.5 Hyperlipidemia, unspecified; J44.9 Chronic obstructive pulmonary disease, unspecified; F32.9 Major depressive disorder, single episode, unspecified; R01.1 Cardiac murmur, unspecified; Z79.82 Long term (current) use of aspirin; Z79.891 Long term (current) use of opiate analgesic; Z79.2 Long term (current) use of antibiotics; Z79.02 Long term (current) use of antithrombotics/antiplatelets; Z79.52 Long term (current) use of systemic steroids; Z99.81 Dependence on supplemental oxygen; Z88.5 Allergy status to narcotic agent; Z91.013 Allergy to seafood

== ENCOUNTER → 2019-01-08 07:48 | Outpatient (CLI) | payer MEDICARE, OTHER ==
[~2019-01-08 07:48] MED LIST changes: +AUGMENTIN 875-11 TAB PO; +CORTISPORIN OTI10 M1 EACH EAR; +NITROQUICK0.4 MG SL; +ZOVIRAX800 MG PO
== END | disposition home or self-care (01) ==
LOC: D.HCCECHO 07:48 → D.HCCARDIO 09:00
PROVIDERS: ATTEND Internal Medicine Cardiovascular Disease
DX: I25.10 Atherosclerotic heart disease of native coronary artery without angina pectoris (principal)

== ENCOUNTER → 2020-01-10 07:50 | Outpatient (CLI) | payer MEDICARE, OTHER | END | disposition home or self-care (01) | LOC: D.HCCECHO 12-31 09:30 | PROVIDERS: ATTEND Internal Medicine Cardiovascular Disease | DX: I25.10 Atherosclerotic heart disease of native coronary artery without angina pectoris (principal) ==